=== PATIENT | male | born 1950 | race Caucasian/White ===

== ENCOUNTER → 2017-11-05 | Outpatient (CLI) | payer OTHER ==
--- NOTE | 2017-11-05 15:28 | DIAGNOSTIC IMAGING REPORT ---
L HAND MIN 3 VIEWS ROUTINE CLINICAL HISTORY: Left hand pain COMPARISON: None DISCUSSION: Tiny radiopaque foreign bodies are visualized adjacent to the first metacarpal and proximal phalanx of the index finger. There are no acute fractures. There are moderately advanced arthritic changes present within the wrist. There is mild scapholunate widening. There is mild capitate subsidence. There is marked narrowing of the radial lunate joint. IMPRESSION: 1. Advanced arthritic changes within the wrist with probable disruption of the scapholunate ligament 2. No acute fractures 3. Tiny radiopaque foreign bodies adjacent to the proximal phalanx of the index finger and first metacarpal Electronically signed by: Jason Blood M.D. 11/05/2017 3:27 PM Dictated Date/Time: 11/05/2017 3:24 PM
== END | disposition home or self-care (01) ==
LOC: C.RAD1850 15:12
PROVIDERS: ATTEND Internal Medicine Rheumatology
DX: M19.90 Unspecified osteoarthritis, unspecified site (principal)

== ENCOUNTER 2020-04-11 09:21 | Observation (INO) ==
--- NOTE | 2020-04-11 09:40 | Emergency Department Note ---
Impression & Plan Multiple rib fractures, Fall, Chest pain, Blood glucose elevated ED Provider Note NAME: LOUISE SPEARS AGE: 70 SEX: M : 1950 ARRIVES VIA: Ambulance INFORMANT: Patient ED PROVIDER(S): Alejandro Diaz DO CHIEF COMPLAINT: fall HPI: Patient is a 62-year-old male who presents the ER who was walking to the bathroom. He had a bowel movement and urinated. He normally walks with a walker. He went to get up and lost his balance. He was not dizzy or lightheade d. He fell in between the tub and the toilet. He was unable to get up. This occurred around 730. He denies any headache or neck pain. He does admit to chronic pain secondary to his rheumatoid arthritis. He notes left-sided rib pain and belly pain from the fall. Denies any other chest pain or shortness of breath. No nausea vomiting or diarrhea. No weakness or numbness in the arms or legs. Pain is a 7 out of 10 on the left side of his chest worse with movement twisting turning bending. Rest improves it. Denies any blood thinners with the exception of aspirin. ROS: See above HPI for pertinent positives & negatives. A total of 10 systems reviewed and were otherwise negative. PAST MEDICAL HISTORY:See Below PAST SURGICAL HISTORY:See Below FAMILY HISTORY:See Below SOCIAL HISTORY:See Below HOME MEDICATIONS:See Below ALLERGIES:See Below VITALS:See Below PHYSICAL EXAMINATION: GENERAL: alert, well appearing, well nourished, no distress, non-toxic HEAD: normal cephalic, atraumatic EYE EXAM: normal conjunctiva, PERRL and EOM's grossly intact OROPHARYNX: no exudate, no erythema, lips, buccal mucosa, and tongue normal and mucous membranes are moist NECK: supple, no nuchal rigidity, no adenopathy, non-tender CHEST: stable to compression anteriorly and posteriorly tenderness throughout the left ribs tracking down into the abdomen LUNGS: clear to auscultation. Normal chest wall mechanics HEART: no murmurs, S1 normal and S2 normal ABDOMEN: abdomen soft, minimal tenderness throughout the left lateral belly normo-active bowel sounds, no masses, no rebound or guarding. PELVIS: stable to compression anteriorly and posteriorly BACK: Back is symmetrical on inspection and there is no deformity, no midline tenderness, no CVA tenderness. UPPER EXTREMITIES: full active and passive range of motion of all joints without tenderness to palpation LOWER EXTREMITIES: full active and passive range of motion of all joints without tenderness to palpation NEURO EXAM: Normal sensorium, cranial nerves II-XII grossly intact, normal speech, no gross weakness of arms, no gross weakness of legs. GCS: 15. MEDICAL DECISION MAKING: Patient is a 70-year-old male who presents the ER following a mechanical fall while getting up off the toilet. He is complaining of severe left-sided rib pain. 7 out of 10. On palpation he has acute reproducible pain. Slightly tachycardic and hypertensive. IV was established blood work was obtained. Denies any blood thinners. Labs show no significant leukocytosis. Persistent anemia 11.6 consistent with previous. BMP was unremarkable. Glucose slightly elevated. LFTs bilirubin were negative. CT of the head, cervical spine, chest abdomen pelvis show 3 rib fractures on the left consistent with his pain. Patient was given 2 doses of IV morphine as well as IV fluids and IV Zofran. Pain was still not controlled. He normally walks with a walker at home secondary to his rheumatoid arthritis. He was updated at bedside. Unable to really sit up secondary to the pain and discussed with the hospitalist for further evaluation. Triage Nursing notes reviewed. Prior medical records reviewed Vital Signs: reviewed and remarkable for tachycardic Differential diagnosis: Differential diagnoses include major intracranial, cervical, spinal, thoracic, abdominal, pelvic and neurologic injury. Fracture, contusion, sprain, strain, laceration, abrasions included as well. ER treatment provided: See below Diagnostics interpreted by me: ECG: Sinus tachycardia rate of 104 Normal axis T wave inversion in lead III No PVCs Normal QTC Cardiac Monitoring: An order was placed for continuous cardiac monitoring. The monitor shows a rate of 98 with sinus rhythm. Laboratory studies: As stated above and show below. Imaging studies: CT head, cervical spine chest abdomen pelvis unremarkable for 3 rib fractures. Consultation(s): Discussed with Juan Manuel Perez in hospital service ED COURSE: Procedures: none Critical Care: None Past Med/Surg History Medical History (Updated 04/11/20 @ 13:30 by Alejandro Diaz DO) Abnormal FSH level Actinic keratosis Anemia of chronic disease Arthritis Benign nevus of skin Benign prostatic hyperplasia with urinary obstruction Calcinosis Cervical arthritis with myelopathy Chronic bilateral low back pain without sciatica Chronic pain of both knees Chronic wrist pain Diabetes mellitus TYPE 2 Dilated pore of Andie Dyslipidemia Elevated sed rate History of gastric ulcer Hyperlipidemia Hypertension Hypogonadism in male Idiopathic polyneuropathy Impotence, organic Low HDL (under 40) Low vitamin B12 level Lower urinary tract symptoms (LUTS) Lyme disease Male erectile disorder of organic origin Monoclonal gammopathy of undetermined significance Obstructive sleep apnea Peripheral vascular disease Polymyalgia rheumatica Raynauds syndrome Sclerodactyly Scleroderma Seborrheic keratosis Urinary retention Vascular calcification Vasculopathy Vasovagal attack Vitamin D deficiency, unspecified Surgical History H/O repair of rotator cuff H/O shoulder surgery bicep tenotomy History of arthroplasty of knee History of repair of rotator cuff History of sinus surgery Status post amputation of finger of right hand Family History Brother Diabetes Cancer Thyroid cancer Mother Hypertension Ovarian cancer age 69 Denies family history of Prostate cancer Social History Smoking Status: Former smoker Age Started Using Tobacco: 21; Age Quit Using Tobacco: 24; Cigarettes Per Day: 1; Hx Alcohol Use: Yes Alcohol type: beer Hx Substance Use: No Preferred Language: Danish Communication Ability: Effective Visual Impairment: No Limitations Hearing Ability: Hard of Hearing Chief Operator Synthesis Required: No Beliefs That Will Affect Care: None marital status: Current Living Situation: Spouse current occupational status: retired Other Information That Helps Us Care for You: No Feels Safe at Home: Yes Safety Concerns: Feels Safe At This Time Dental Care, Regularly: No Physical Activity Frequency: Does not Exercise Allergies Allergies Allergy/AdvReac Type Severity Reaction Status Date / Time No Known Allergies Allergy Verified 04/11/20 10:36 Home Meds Home Medications Medication Instructions Recorded Confirmed aspirin 81 mg tablet,delayed 81 mg PO DAILY tab 03/01/19 04/11/20 release cholecalciferol (vitamin D3) 125 5,000 units PO DAILY 04/05/19 04/11/20 mcg (5,000 unit) capsule glucosamine sulfate 2KCl 500 mg 1,000 mg PO DAILY cap 04/05/19 04/11/20 capsule multivitamin 1 tab PO DAILY tab 04/05/19 04/11/20 omega 3,6,9 combination no.7 92 mg 92 mg PO DAILY 12/03/19 04/11/20 (43 mg-22 [id number]) chew tablet acetaminophen [Tylenol Arthritis] 650 mg PO Q12H PRN 04/11/20 04/11/20 prednisone 20 mg PO DAILY 04/11/20 04/11/20 sulfamethoxazole-trimethoprim 1 tab PO 3XWK 04/11/20 04/11/20 [Bactrim] Previous Rx's Medication Instructions Recorded metoprolol succinate 50 mg 100 mg PO HS #180 tab 07/19/19 tablet,extended release 24 hr tamsulosin 0.4 mg capsule 0.4 mg PO DAILY #90 cap 08/16/19 cyanocobalamin (vitamin B-12) 1,000 mcg PO DAILY #90 tab 09/06/19 1,000 mcg tablet metformin 500 mg tablet,extended 500 mg PO BID #180 tab 11/02/19 release 24 hr nifedipine 30 mg tablet,extended 30 mg PO DAILY #90 tab 12/09/19 release 24 hr rosuvastatin 5 mg tablet 5 mg PO DAILY #90 tab 12/21/19 testosterone 20.25 mg/1.25 gram 4 pump TOP DAILY #75 gm 01/03/20 (1.62 %) transdermal gel pump blood sugar diagnostic #20 ea 01/05/20 lisinopril 20 2 tab PO QAM #180 tab 02/15/20 mg-hydrochlorothiazide 12.5 mg tablet Results & Data (ED) Vital Signs Vital Signs - 24 hr 04/11/20 09:31 04/11/20 09:36 04/11/20 10:49 Temperature 37.4 C Temperature Source Oral Pulse Rate 102 H Pulse Rate [Left Finger] 99 H Respiratory Rate 20 22 Respiratory Effort / Characteristics Respiratory Depth Blood Pressure 152/91 H Blood Pressure [Left Arm] 134/82 Blood Pressure Mean 111 Blood Pressure Mean [Left Arm] 99 Pulse Oximetry 95 95 97 Oxygen Delivery Method Room Air Room Air Room Air Sepsis Recent Fever Within 48 Hours No Sepsis New/Unexplained Change in Mental Status No Sepsis Action Taken by Nursing No Action Required 04/11/20 11:22 04/11/20 11:30 04/11/20 12:12 Temperature Temperature Source Pulse Rate Pulse Rate [Left Finger] 95 H 96 H 106 H Respiratory Rate 20 20 20 Respiratory Effort / Characteristics Non-Labored Non-Labored Respiratory Depth Normal Normal Blood Pressure Blood Pressure [Left Arm] 146/91 H 143/83 H 127/84 Blood Pressure Mean Blood Pressure Mean [Left Arm] 109 103 98 Pulse Oximetry 96 97 94 Oxygen Delivery Method Room Air Room Air Room Air Sepsis Recent Fever Within 48 Hours Sepsis New/Unexplained Change in Mental Status Sepsis Action Taken by Nursing 04/11/20 13:18 Temperature Temperature Source Pulse Rate Pulse Rate [Left Finger] 97 H Respiratory Rate 20 Respiratory Effort / Characteristics Respiratory Depth Blood Pressure Blood Pressure [Left Arm] 151/96 H Blood Pressure Mean Blood Pressure Mean [Left Arm] 114 Pulse Oximetry 96 Oxygen Delivery Method Room Air Sepsis Recent Fever Within 48 Hours Sepsis New/Unexplained Change in Mental Status Sepsis Action Taken by Nursing Laboratory Data Result diagrams: 04/11/20 09:34 04/11/20 09:34 Lab Results 04/11/20 04/11/20 04/11/20 Range/Units 09:34 09:34 09:39 WBC 7.01 (4.8-10.8) K/uL RBC 4.30 L (4.7-6.1) M/uL Hgb 11.6 L (14.0-18.0) g/dL POC Hgb 12.6 L (14.0-18.0) g/dl Hct 36.5 L (42-52) % POC Hct 37 L (42-52) % MCV 84.9 (80-100) fL MCH 27.0 (25-34) pg MCHC 31.8 L (32-36) g/dL RDW Std Deviation 57.8 H (36.4-46.3) fL RDW Coeff of Zaheer 18.7 H (11.5-14.5) % Plt Count 263 (130-400) K/uL MPV 9.5 (7.4-10.4) fL Immature Gran % (Auto) 1.0 % Neut % (Auto) 76.4 % Lymph % (Auto) 11.6 % Hodgeman % (Auto) 10.8 % Eos % (Auto) 0.1 % Baso % (Auto) 0.1 % Neut # (Auto) 5.35 (1.4-6.5) K/uL Lymph # (Auto) 0.81 L (1.2-3.4) K/uL Hodgeman # (Auto) 0.76 H (0.11-0.59) K/uL Eos # (Auto) 0.01 (0-0.5) K/uL Baso # (Auto) 0.01 (0-0.2) K/uL Immature Gran # (Auto) 0.07 H (0.00-0.02) K/uL POC Sodium 138 (135-144) mmol/L Sodium 138 (136-145) mmol/L POC Potassium 4.3 (3.3-5.0) mmol/L Potassium 4.2 (3.5-5.1) mmol/L POC Chloride 100 L (101-112) mmol/L Chloride 104 (98-107) mmol/L Carbon Dioxide 28 (21-32) mmol/L POC Total CO2 26 (24-31) mmol/L Anion Gap 6.0 (3-11) POC Anion Gap 17.0 (16-25) mmol/L POC BUN 20 H (7-18) mg/dl BUN 20 H (7-18) mg/dl Creatinine 0.79 (0.6-1.4) mg/dl POC Creatinine 0.7 (0.6-1.3) mg/dl Est Cr Clr Drug Dosing 89.5 ml/min Est GFR ( Amer) 106.9 Est GFR (Non-Af Amer) 92.3 BUN/Creatinine Ratio 25.5 H (10-20) Glucose 135 H (70-99) mg/dl POC Glucose (other) 135 H (70-99) mg/dl Calcium 8.8 (8.5-10.1) mg/dl POC Ioniz Calcium Rafita 1.16 (1.12-1.32) mmol/l Total Bilirubin 0.8 (0.2-1) mg/dl AST 17 (15-37) U/L ALT 23 (12-78) U/L Alkaline Phosphatase 89 (45-117) U/L Total Protein 7.9 (6.4-8.2) gm/dl Albumin 3.0 L (3.4-5.0) gm/dl Globulin 4.9 H (2.5-4.0) gm/dl Albumin/Globulin Ratio 0.6 L (0.9-2) Administered Medications Lisinopril/HCTZ (Lisinopril/Hctz 20/12.5mg 1 Tab Tab) 2 tab PO QAM GLORY Stop: 05/11/20 12:35 Last Admin: 04/11/20 13:19 Dose: 2 tab Documented by: [id number] Nifedipine (Nifedipine Extended Rel 30 Mg Tabcr) 30 mg PO DAILY [facility] Stop: 05/11/20 12:35 Last Admin: 04/11/20 13:20 Dose: 30 mg Documented by: [id number] Prednisone (Prednisone 10 Mg Tablet) 20 mg PO DAILY GLORY Stop: 05/11/20 12:44 Last Admin: 04/11/20 13:19 Dose: 20 mg Documented by: [id number] Discontinued Medications Ioversol (Ioversol 100ml) 93 ml IV ONCE ONE Stop: 04/11/20 11:12 Last Admin: 04/11/20 11:12 Dose: 93 ml Documented by: [id number] Morphine Sulfate (Morphine Sulfate 4 Mg/Ml 1 Ml Carp\Vial) 4 mg IV NOW STA Stop: 04/11/20 10:59 Last Admin: 04/11/20 11:24 Dose: 4 mg Documented by: [id number] Morphine Sulfate (Morphine Sulfate 10 Mg/Ml Carp/Vial) 6 mg IV NOW STA Stop: 04/11/20 11:52 Last Admin: 04/11/20 12:17 Dose: 6 mg Documented by: [id number] Ondansetron HCl (Ondansetron Inj 2 Mg/Ml 2 Ml Vial) 4 mg IV NOW STA Stop: 04/11/20 10:59 Last Admin: 04/11/20 11:24 Dose: 4 mg Documented by: [id number] Discharge Plan Visit Data Chief Complaint: Fall Stated Complaint: fall/ head pain ED Provider: Alejandro Diaz Discharge Problem: Multiple rib fractures, Fall, Chest pain, Blood glucose elevated Forms Stand Alone Forms: My [facility] Prescriptions Prescriptions: No Action metoprolol succinate 50 mg tablet extended release 24 hr 100 mg PO HS Qty: 180 RF: 3 cyanocobalamin (vitamin B-12) 1,000 mcg tablet 1,000 mcg PO DAILY Qty: 90 RF: 3 metformin 500 mg tablet extended release 24 hr 500 mg PO BID Qty: 180 RF: 1 nifedipine [Procardia XL] 30 mg tablet extended release 24hr 30 mg PO DAILY Qty: 90 RF: 3 rosuvastatin 5 mg tablet 5 mg PO DAILY Qty: 90 RF: 1 testosterone [AndroGel] 20.25 mg/1.25 gram (1.62 %) gel in metered-dose pump 4 pump TOP DAILY Qty: 75 RF: 1 (DME) blood sugar diagnostic [Accu-Chek Lesley Plus test strp] Strip See Rx Instructions .ROUTE .MEDSUPPLY Qty: 20 RF: 5 lisinopril-hydrochlorothiazide 20-12.5 mg tablet 2 tab PO QAM Qty: 180 RF: 3 aspirin 81 mg tablet,delayed release (DR/EC) 81 mg PO DAILY RF: 0 tamsulosin 0.4 mg capsule 0.4 mg PO DAILY Qty: 90 RF: 3 [place] DHA 92 mg (43 mg-22 [id number]) tablet,chewable 92 mg PO DAILY RF: 0 Glucosamine Relief 500 mg capsule 1,000 mg PO DAILY RF: 0 cholecalciferol (vitamin D3) 5,000 unit capsule 5,000 units PO DAILY RF: 0 multivitamin tablet 1 tab PO DAILY RF: 0 acetaminophen [Tylenol Arthritis] 650 mg Tablet Extended Release 650 mg PO Q12H PRN (Reason: Pain) RF: 0 prednisone 10 mg tablet 20 mg PO DAILY RF: 0 sulfamethoxazole-trimethoprim [Bactrim] 400-80 mg tablet 1 tab PO 3XWK RF: 0 Discharge Problem: Multiple rib fractures Qualifiers: Encounter type: initial encounter Fracture type: closed Laterality: left Qualified Code(s): S22.42XA - Multiple fractures of ribs, left side, initial encounter for closed fracture Fall Qualifiers: Encounter type: initial encounter Qualified Code(s): W19.XXXA - Unspecified fall, initial encounter Chest pain Qualifiers: Chest pain type: unspecified Qualified Code(s): R07.9 - Chest pain, unspecified
[2020-04-11 09:50] LABS: Basophils # (auto) 0.01 K/uL (0-0.2); Basophils % (auto) 0.1 %; Eosinophils # (auto) 0.01 K/uL (0-0.5); Eosinophils % (auto) 0.1 %; Hematocrit (blood only) 36.5 % (42-52); Hemoglobin 11.6 g/dL (14.0-18.0); Immature Granulocytes # (auto) 0.07 K/uL (0.00-0.02); Lymphocytes # (auto) 0.81 K/uL (1.2-3.4); Lymphocytes % (auto) 11.6 %; Mean Corpuscular Hgb Conc 31.8 g/dL (32-36); Mean Corpuscular Volume 84.9 fL (80-100); Mean Platelet Volume 9.5 fL (7.4-10.4); Monocytes # (auto) 0.76 K/uL (0.11-0.59); Monocytes % (auto) 10.8 %; Neutrophils # (auto) 5.35 K/uL (1.4-6.5); Neutrophils % (auto) 76.4 %; Platelet Count 263 K/uL (130-400); RDW Coefficient of Variation 18.7 % (11.5-14.5); RDW Standard Deviation 57.8 fL (36.4-46.3); White Blood Count 7.01 K/uL (4.8-10.8)
[2020-04-11 09:53] LABS: iSTAT Creatinine 0.7 mg/dl (0.6-1.3); iSTAT Hemoglobin 12.6 g/dl (14.0-18.0); iSTAT Ionized Calcium 1.16 mmol/l (1.12-1.32); iSTAT Potassium 4.3 mmol/L (3.3-5.0)
[2020-04-11 10:10] LABS: BUN Creatinine Ratio 25.5 (10-20); Calcium 8.8 mg/dl (8.5-10.1); Creatinine Clr Calc Pharmacy 89.5 ml/min; Est GFR (African American) 106.9; Est GFR (Non-African American) 92.3; Potassium 4.2 mmol/L (3.5-5.1)
[2020-04-11 10:13] LABS: Albumin Globulin Ratio 0.6 (0.9-2); Bilirubin,Total 0.8 mg/dl (0.2-1); Globulin 4.9 gm/dl (2.5-4.0); Total Protein 7.9 gm/dl (6.4-8.2)
[2020-04-11] MEDS ORDERED: MoRPHine SULFATE 4 MG/ML 1 ML CARP\\VIAL IV STA (10:58)
[2020-04-11] MEDS ORDERED: ONDANSETRON INJ 2 MG/ML 2 ML VIAL IV STA (10:58)
[2020-04-11] MEDS ORDERED: IOVERSOL 100ml IV ONE (11:11)
--- NOTE | 2020-04-11 11:26 | CT Scan Report ---
CT head/brain wo con CLINICAL HISTORY: Head pain status post trauma COMPARISON STUDY: MRI the brain dated 12/24/2018 TECHNIQUE: Axial CT of the brain is performed from the vertex to the skull base. IV contrast was not administered for this examination. A dose lowering technique was utilized adhering to the principles of ALARA. CT DOSE: FINDINGS: No intra or extra-axial mass lesions are visualized. There is no CT evidence of acute cortical infarc tion. There is no evidence of midline shift. There is no acute hemorrhage. No calvarial fractures ar e visualized. There are patchy white matter hypodensities likely on a small vessel basis. There is no evidence of pathologic ventricular dilatation. There is no evidence of acute sinusitis IMPRESSION: No acute intracranial findings ACT 112: Negative or not required by law. Electronically signed by: Jason Blood M.D. 04/11/2020 11:24 AM
--- NOTE | 2020-04-11 11:27 | CT Scan Report ---
CT OF THE CERVICAL SPINE CLINICAL HISTORY: Neck pain status post trauma COMPARISON STUDY: X-ray study dated 11/26/2018 CT DOSE: 2397.02 mGy.cm TECHNIQUE: CT scan of the cervical spine was performed from the skull base to the thoracic inlet. Bebe ges are reviewed in the axial, sagittal, and coronal planes. IV contrast was not administered for thi s examination. A dose lowering technique was utilized adhering to the principles of ALARA. FINDINGS: The visualized portions of the lung apices reveal no evidence of pneumothorax. The prevertebral soft tissues are normal. No fractures or subluxations are visualized. There are multilevel degenerative changes IMPRESSION: No evidence of acute fracture or traumatic subluxation. ACT 112: Negative or not required by law. Electronically signed by: Jason Blood M.D. 04/11/2020 11:26 AM
--- NOTE | 2020-04-11 11:38 | CT Scan Report ---
CT abd pelvis IV con only CLINICAL HISTORY: Abdominal pain status post trauma COMPARISON STUDY: None. TECHNIQUE: The patient was scanned in a dynamic helical fashion during intravenous administration of 93 cc of Optiray 320 A dose lowering technique was utilized adhering to the principles of ALARA. CT DOSE: FINDINGS: Lower chest: There are dependent atelectatic changes. Liver: There is a nonspecific 12 mm left lobe hepatic hypodensity. There is no CT evidence of acute h epatic injury. Gallbladder: Unremarkable. Spleen: The spleen is mildly enlarged measuring 13 cm Pancreas: Unremarkable. Adrenal glands: Unremarkable. Kidneys: There is symmetric renal cortical enhancement. The kidneys are normal in size without hydron ephrosis. Bowel: There are no transition zones to indicate bowel obstruction. There is no evidence of acute div erticulitis. The appendix appears normal. There is no pneumatosis. There is no pathologic interloop f luid. Peritoneum: There is no intraperitoneal free air or abdominal ascites. Vasculature: The abdominal aorta is normal in course and caliber. Adenopathy: None. Pelvic viscera: The bladder, and pelvic viscera are unremarkable. Skeletal structures: There are extensive multifocal bilateral subcutaneous soft tissue calcifications . There are age indeterminant fractures of the left seventh eighth and ninth ribs laterally. There ar e old right-sided rib fractures. IMPRESSION: 1. No evidence of acute intra-abdominal or pelvic injury 2. Old right-sided rib fractures, and age-indeterminate fractures of the left seventh, eighth, and ni nth ribs 3. Extensive multifocal bilateral subcutaneous soft tissue calcifications ACT 112: Negative or not required by law. Electronically signed by: Jason Blood M.D. 04/11/2020 11:36 AM
--- NOTE | 2020-04-11 11:39 | CT Scan Report ---
CT OF THE CHEST WITH IV CONTRAST CLINICAL HISTORY: Fall. Left-sided rib pain. COMPARISON STUDY: Chest radiograph October 28, 2018. TECHNIQUE: Following IV administration of 93 mL of Optiray-320, helical axial images of the chest we re obtained. Sagittal and coronal reconstructions were viewed as well as maximal intensity projectio ns on an independent 3-D workstation. Automated exposure control was utilized for the study. A dose lowering technique was utilized adhering to the principles of ALARA. FINDINGS: Incidental note is made of extensive multifocal soft tissue calcifications which are chron ic. There is no evidence for traumatic injury to the thoracic aorta. Moderate cardiomegaly and merida ry artery calcification is present. There is no pericardial effusion. No pneumothorax or pulmonary co ntusion is present. Several thoracic spine compression deformity is probably. There are several old l eft rib fractures. Note is made of acute nondisplaced fractures of the lateral left seventh, eighth a nd ninth ribs. No acute right-sided rib fractures are present. The abdomen and pelvis will be reporte d separately. IMPRESSION: 1. Acute nondisplaced fractures of the lateral left seventh, eighth and ninth ribs. No pneumothorax. 2. No additional acute traumatic findings within the chest. 3. Multifocal soft tissue calcifications which are chronic. ACT 112: Negative or not required by law. Electronically signed by: Adriel Denney M.D. 04/11/2020 11:37 AM
[2020-04-11] MEDS ORDERED: MoRPHine SULFATE 10 MG/ML CARP/VIAL IV STA (11:51)
--- NOTE | 2020-04-11 12:11 | Electrocardiogram Report ---
Test Reason : Blood Pressure : / mmHG Vent. Rate : 104 BPM Atrial Rate : 104 BPM P-R Int : 178 ms QRS Dur : 082 ms QT Int : 354 ms P-R-T Axes : 033 038 -02 degrees QTc Int : 465 ms Poor data quality, interpretation may be adversely affected Sinus tachycardia Borderline ECG When compared with ECG of 28-OCT-2018 18:15, No significant change was found Confirmed by Matthew Rasheed ([id number]) on 04/11/2020 12:10:53 PM Referred By: Confirmed By:Matthew Rasheed
--- NOTE | 2020-04-11 12:55 | History & Physical Report ---
Date of Service April 11, 2020 Assessment & Plan (1) Ribs, multiple fractures: -Admit to [facility] for observation -Pain control with IV MS prn, tramadol prn, [id number] Tylenol, lidocaine patch -Encouraged aeration of the lungs and ambulation at bedside, incentive spirometer and flutter ordered -CT of the chest reviewed showing new acute left-sided rib fractures #79, old right-sided rib fractures seen on imaging -Patient with adequate O2 sats, on room air -PT/OT consults for imbalance and worsening ambulatory status in past month (2) Hypertension: -Missed morning medications, will order lisinopril/HCTZ and Procardia to start now, continue metoprolol succinate 100 mg HS -BP well controlled, slightly tachycardic likely secondary to missing meds (3) Hyperlipidemia: -Not on statin therapy -Continue omega-3, 6, 9 daily (4) Anemia of chronic disease: -Hemoglobin 11.6, appears to be about baseline currently (5) Polymyalgia rheumatica: -Placed on prednisone, cont 20 mg for now. pt reports that he has not been tapered off of this despite Dr. Wells's note which is available in our system from 03/14/2020 (6) Raynauds syndrome: (7) Scleroderma: (8) Sclerodactyly: (9) Arthritis: -Patient follows with rheumatology, Dr. Mathew River at [facility]-has recently been seen for possible myositis because he notices multiple small calcified nodules over legs, feet and buttocks. He has evidence from dermatology in 2017 consistent with calcinosis (10) Diabetes mellitus: -Last A1c was 6.1 in February -Hold outpatient metformin -ISS with Accu-Christi MORGAN (11) Obstructive sleep apnea: - hx of such (12) DVT prophylaxis: - teds, scds CODE: Full Dispo: From home, likely to remain in the hospital x 1 day History of Present Illness Primary Care Provider: Fredi Rodríguez MD This is a 70-year-old male with PMHx of polymyalgia rheumatica, Raynaud's syndrome, sclerodactyly, scleroderma, arthritis, HTN, HLD, DM type II, anemia, TRUMAN who presents after an acute fall sustained this morning while attempting to get up off of the toilet. Patient states that he stepped and lost his footing due to imbalance and slipped on water where he came down and hit his right side on the tub causing significant pain. He did not hit his head, no LOC, no presyncopal symptoms including lightheadedness or dizziness upon standing. He ambulates with a walker at baseline, does not participate in routine exercises nor does he see PT/OT at home. Patient sustained new acute left rib fractures involving ribs 7, 8, 9. His pain has improved since being in the ER and getting morphine at bedside. He is able to take deep breaths but it is painful, denies cough, shortness of breath, fever sweats or chills. His is present with him at bedside and states that he has been going downhill over the past month in terms of his ambulatory status. He has fallen previously, has a bruise over his back from the last time he fell which was a few weeks ago. Patient takes baby aspirin daily but no other blood thinners. He missed his morning medications today. Allergies Allergy/AdvReac Type Severity Reaction Status Date / Time No Known Allergies Allergy Verified 04/11/20 10:36 Home Medications Home Medications Medication Instructions Recorded Confirmed Type aspirin 81 mg tablet,delayed 81 mg PO DAILY tab 03/01/19 04/11/20 History release cholecalciferol (vitamin D3) 125 5,000 units PO DAILY 04/05/19 04/11/20 History mcg (5,000 unit) capsule glucosamine sulfate 2KCl 500 mg 1,000 mg PO DAILY cap 04/05/19 04/11/20 History capsule multivitamin 1 tab PO DAILY tab 04/05/19 04/11/20 History metoprolol succinate 50 mg 100 mg PO HS #180 tab 07/19/19 04/11/20 Rx tablet,extended release 24 hr tamsulosin 0.4 mg capsule 0.4 mg PO DAILY #90 cap 08/16/19 04/11/20 Rx cyanocobalamin (vitamin B-12) 1,000 mcg PO DAILY #90 tab 09/06/19 04/11/20 Rx 1,000 mcg tablet metformin 500 mg tablet,extended 500 mg PO BID #180 tab 11/02/19 04/11/20 Rx release 24 hr omega 3,6,9 combination no.7 92 mg 92 mg PO DAILY 12/03/19 04/11/20 History (43 mg-22 [id number]) chew tablet nifedipine 30 mg tablet,extended 30 mg PO DAILY #90 tab 12/09/19 04/11/20 Rx release 24 hr rosuvastatin 5 mg tablet 5 mg PO DAILY #90 tab 12/21/19 04/11/20 Rx testosterone 20.25 mg/1.25 gram 4 pump TOP DAILY #75 gm 01/03/20 04/11/20 Rx (1.62 %) transdermal gel pump blood sugar diagnostic #20 ea 01/05/20 03/13/20 Rx lisinopril 20 2 tab PO QAM #180 tab 02/15/20 04/11/20 Rx mg-hydrochlorothiazide 12.5 mg tablet acetaminophen [Tylenol Arthritis] 650 mg PO Q12H PRN 04/11/20 04/11/20 History prednisone 20 mg PO DAILY 04/11/20 04/11/20 History sulfamethoxazole-trimethoprim 1 tab PO 3XWK 04/11/20 04/11/20 History [Bactrim] Past Med/Surg History Medical History (Updated 04/11/20 @ 13:30 by Alejandro Diaz DO) Abnormal FSH level Actinic keratosis Anemia of chronic disease Arthritis Benign nevus of skin Benign prostatic hyperplasia with urinary obstruction Calcinosis Cervical arthritis with myelopathy Chronic bilateral low back pain without sciatica Chronic pain of both knees Chronic wrist pain Diabetes mellitus TYPE 2 Dilated pore of Andie Dyslipidemia Elevated sed rate History of gastric ulcer Hyperlipidemia Hypertension Hypogonadism in male Idiopathic polyneuropathy Impotence, organic Low HDL (under 40) Low vitamin B12 level Lower urinary tract symptoms (LUTS) Lyme disease Male erectile disorder of organic origin Monoclonal gammopathy of undetermined significance Obstructive sleep apnea Peripheral vascular disease Polymyalgia rheumatica Raynauds syndrome Sclerodactyly Scleroderma Seborrheic keratosis Urinary retention Vascular calcification Vasculopathy Vasovagal attack Vitamin D deficiency, unspecified Surgical History H/O repair of rotator cuff H/O shoulder surgery bicep tenotomy History of arthroplasty of knee History of repair of rotator cuff History of sinus surgery Status post amputation of finger of right hand Family History Brother Diabetes Cancer Thyroid cancer Mother Hypertension Ovarian cancer age 69 Denies family history of Prostate cancer Social History Smoking Status: Former smoker Age Started Using Tobacco: 21; Age Quit Using Tobacco: 24; Cigarettes Per Day: 1; Hx Alcohol Use: Yes Alcohol type: beer Hx Substance Use: No Preferred Language: Chinese Communication Ability: Effective Visual Impairment: No Limitations Hearing Ability: Hard of Hearing Salon Customer Experience Specialist Required: No Beliefs That Will Affect Care: None marital status: Current Living Situation: Spouse current occupational status: retired Other Information That Helps Us Care for You: No Feels Safe at Home: Yes Safety Concerns: Feels Safe At This Time Dental Care, Regularly: No Physical Activity Frequency: Does not Exercise Review of Systems Review of Systems: Constitutional: No fever, sweats or chills Eyes: No diplopia, no worsening or blurred vision ENT: normal hearing, no trouble swallowing Respiratory: No cough, sputum, dyspnea at rest or on exertion Cardiovascular: No chest pain, tightness or palpitations Abdomen: No pain, nausea, vomiting, diarrhea or constipation Musculoskeletal: As per HPI, left rib pain, chronic low back pain, chronic knee pain. Neurologic: +Generalized weakness of bilateral legs, no numbness/tingling, +Uses a walker at baseline Psychiatric: No anxiety or depression Skin: No rash or itch Physical Exam Physical Exam: General: awake, alert, no apparent distress Head: Normocephalic, atraumatic ENT: PERRL, EOMI, no pharyngeal exudate, mucous membranes moist Chest: Clear to auscultation, on room air, no adventitious breath sounds, tenderness over the left chest wall, developing ecchymosis Cardiac: Regular rhythm, tachycardic with heart rate in the low 100s, no murmur, no JVD, normal peripheral pulses, good capillary refill Abdominal: NABS x 4 quadrants, soft, nontender to palpation, no rebound, guarding or tenderness Extremities: Normal inspection, no peripheral edema or erythema, calfs nontender to palpation, + many small calcified nodules over extremities under the skin in the left and right leg, bilateral feet, and buttocks Psych: Normal mood and affect Neuro: AAO x 3, no gross motor deficits, speech is clear, no peripheral sensory deficits Skin: no rash or erythema Results & Data Results & Data ([facility]) Vital Signs (Past 12 Hours) Vital Signs Temp Pulse Pulse Resp BP BP Pulse Ox 04/11/20 12:12 106 H 20 127/84 94 04/11/20 11:30 96 H 20 143/83 H 97 04/11/20 11:22 95 H 20 146/91 H 96 04/11/20 10:49 99 H 22 134/82 97 04/11/20 09:36 95 04/11/20 09:31 37.4 C 102 H 20 152/91 [address] OF THE CHEST WITH IV CONTRAST CLINICAL HISTORY: Fall. Left-sided rib pain. COMPARISON STUDY: Chest radiograph October 28, 2018. TECHNIQUE: Following IV administration of 93 mL of Optiray-320, helical axial images of the chest were obtained. Sagittal and coronal reconstructions were viewed as well as maximal intensity projections on an independent 3-D workstation. Automated exposure control was utilized for the study. A dose lowering technique was utilized adhering to the principles of ALARA. FINDINGS: Incidental note is made of extensive multifocal soft tissue calcifications which are chronic. There is no evidence for traumatic injury to the thoracic aorta. Moderate cardiomegaly and coronary artery calcification is present. There is no pericardial effusion. No pneumothorax or pulmonary contusion is present. Several thoracic spine compression deformity is probably. There are several old left rib fractures. Note is made of acute nondisplaced fractures of the lateral left seventh, eighth and ninth ribs. No acute right- sided rib fractures are present. The abdomen and pelvis will be reported separately. IMPRESSION: 1. Acute nondisplaced fractures of the lateral left seventh, eighth and ninth ribs. No pneumothorax. 2. No additional acute traumatic findings within the chest. 3. Multifocal soft tissue calcifications which are chronic. CT abd pelvis IV con only CLINICAL HISTORY: Abdominal pain status post trauma COMPARISON STUDY: None. TECHNIQUE: The patient was scanned in a dynamic helical fashion during intravenous administration of 93 cc of Optiray 320 A dose lowering technique was utilized adhering to the principles of ALARA. CT DOSE: FINDINGS: Lower chest: There are dependent atelectatic changes. Liver: There is a nonspecific 12 mm left lobe hepatic hypodensity. There is no CT evidence of acute hepatic injury. Gallbladder: Unremarkable. Spleen: The spleen is mildly enlarged measuring 13 cm Pancreas: Unremarkable. Adrenal glands: Unremarkable. Kidneys: There is symmetric renal cortical enhancement. The kidneys are normal in size without hydronephrosis. Bowel: There are no transition zones to indicate bowel obstruction. There is no evidence of acute diverticulitis. The appendix appears normal. There is no pneumatosis. There is no pathologic interloop fluid. Peritoneum: There is no intraperitoneal free air or abdominal ascites. Vasculature: The abdominal aorta is normal in course and caliber. Adenopathy: None. Pelvic viscera: The bladder, and pelvic viscera are unremarkable. Skeletal structures: There are extensive multifocal bilateral subcutaneous soft tissue calcifications. There are age indeterminant fractures of the left seventh eighth and ninth ribs laterally. There are old right-sided rib fractures. IMPRESSION: 1. No evidence of acute intra-abdominal or pelvic injury 2. Old right-sided rib fractures, and age-indeterminate fractures of the left seventh, eighth, and ninth ribs 3. Extensive multifocal bilateral subcutaneous soft tissue calcifications CT OF THE CERVICAL SPINE CLINICAL HISTORY: Neck pain status post trauma COMPARISON STUDY: X-ray study dated 11/26/2018 CT DOSE: 2397.02 mGy.cm TECHNIQUE: CT scan of the cervical spine was performed from the skull base to the thoracic inlet. Images are reviewed in the axial, sagittal, and coronal planes. IV contrast was not administered for this examination. A dose lowering technique was utilized adhering to the principles of ALARA. FINDINGS: The visualized portions of the lung apices reveal no evidence of pneumothorax. The prevertebral soft tissues are normal. No fractures or subluxations are visualized. There are multilevel degenerative changes IMPRESSION: No evidence of acute fracture or traumatic subluxation. CT head/brain wo con CLINICAL HISTORY: Head pain status post trauma COMPARISON STUDY: MRI the brain dated 12/24/2018 TECHNIQUE: Axial CT of the brain is performed from the vertex to the skull base. IV contrast was not administered for this examination. A dose lowering technique was utilized adhering to the principles of ALARA. CT DOSE: FINDINGS: No intra or extra-axial mass lesions are visualized. There is no CT evidence of acute cortical infarction. There is no evidence of midline shift. There is no acute hemorrhage. No calvarial fractures are visualized. There are patchy white matter hypodensities likely on a small vessel basis. There is no evidence of pathologic ventricular dilatation. There is no evidence of acute sinusitis IMPRESSION: No acute intracranial findings ECG Additional Comments: 11-APR-2020 09:30:24 [facility]-EDSTAT ROUTINE RETRIEVAL Poor data quality, interpretation may be adversely affected Sinus tachycardia Borderline ECG When compared with ECG of 28-OCT-2018 18:15, No significant change was found Confirmed by Matthew Rasheed ([id number]) on 04/11/2020 12:10:53 PM 25mm/s 10mm/mV 150Hz 9.0.9 12SL 241 HD REX: 12 Confirmed By: Matthew Rasheed Vent. rate 104 BPM WA interval 178 ms QRS duration 82 ms QT/QTc 354/465 ms P-R-T axes 33 38 -2 Code Status & VTE Plan Code Status Full code-discussed with the patient and his at bedside VTE Prophylaxis Plan VTE Prophylaxis will be ordered: Yes Supervising Physician Co-Signing Physician Notes Patient was seen and examined independently I discussed the case with Elisha ROBERTO I reviewed pertinent past medical social family history and also the plan of care and agree with the plan of care. 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 he is following with [facility] for this His lungs though have some splinting in the left side with some decreased breath sounds at the bases with a few rales Plan is pain control reevaluation in the morning Any exceptions will be noted below PG Care Time/CCT Total # of Minutes Spent Total Time Spent with Patient: Total time spent is greater than 50% in coordination of care (as documented) at patient's floor/unit and/or counseling patient: Coding Level of Care Code 20730 OBS Care - Level 3 Diagnoses Ribs, multiple fractures S22.49XA Hypertension I10 Hypertension type: essential hypertension Hyperlipidemia E78.5 Anemia of chronic disease D63.8 Polymyalgia rheumatica M35.3 Raynauds syndrome I73.00 Scleroderma M34.9 Sclerodactyly L94.3 Arthritis M19.90 Diabetes mellitus E11.9 Diabetes mellitus complication status: without complication Diabetes mellitus rn long term care insulin use: without rn long term care use Diabetes mellitus type: type 2 Obstructive sleep apnea G47.33 DVT prophylaxis Z29.9 (1) Diabetes mellitus Diabetes mellitus complication status: without complication Diabetes mellitus skilled nursing insulin use: without skilled nursing use Diabetes mellitus type: type 2 Qualified Code(s): E11.9 - Type 2 diabetes mellitus without complications (2) Hypertension Hypertension type: essential hypertension Qualified Code(s): I10 - Essential (primary) hypertension
[2020-04-11] MEDS: predniSONE 10 MG TABLET PO SCH (13:19)
[2020-04-11] MEDS: LISINOPRIL/HCTZ 20/12.5MG 1 TAB TAB PO SCH (13:19)
[2020-04-11] MEDS: NIFEdipine EXTENDED REL 30 MG TABCR PO SCH (13:20)
[2020-04-11] MEDS ORDERED: ONDANSETRON INJ 2 MG/ML 2 ML VIAL IV PRN (16:48)
[2020-04-11] MEDS ORDERED: CARBOHYDRATES FOR HYPOGLYCEMIA PO PRN (16:48)
[2020-04-11] MEDS ORDERED: GLUCOSE 40% GEL 15 GM TUBE PO PRN (16:48)
[2020-04-11] MEDS ORDERED: MoRPHine SULFATE 4 MG/ML 1 ML CARP\\VIAL IV PRN (16:48)
[2020-04-11] MEDS ORDERED: DEXTROSE 50% 50 ML SYRINGE IV PRN (16:48)
[2020-04-11] MEDS ORDERED: GLUCOSE 10 TABS/TUBE PO PRN (16:48)
[2020-04-11] MEDS ORDERED: GLUCAGON FOR INJ 1 MG VIAL SQ PRN (16:48)
[2020-04-11] MEDS: LIDOCAINE 5% 1 PATCH TD SCH (17:47)
[2020-04-11] MEDS: ACETAMINOPHEN 500 MG TAB PO SCH (17:48)
[2020-04-11] MEDS: INSULIN ASPART 100 UNITS/ML 3 ML PEN SC SCH ×2 (18:12→21:50)
[2020-04-11] MEDS: TRAMADOL HCL 50 MG TABLET PO PRN (18:37)
[2020-04-11] MEDS ORDERED: METOPROLOL SUCC 50MG EXT REL TAB PO SCH (21:00)
[2020-04-12] MEDS: ACETAMINOPHEN 500 MG TAB PO SCH ×3 (00:43→13:11)
[2020-04-12 06:04] LABS: Hematocrit (blood only) 34.9 % (42-52); Hemoglobin 10.8 g/dL (14.0-18.0); Mean Corpuscular Hemoglobin 26.9 pg (25-34); Mean Corpuscular Hgb Conc 30.9 g/dL (32-36); Mean Platelet Volume 9.6 fL (7.4-10.4); Platelet Count 272 K/uL (130-400); RDW Standard Deviation 60.6 fL (36.4-46.3); Red Blood Count 4.01 M/uL (4.7-6.1); White Blood Count 5.53 K/uL (4.8-10.8)
[2020-04-12] MEDS: TRAMADOL HCL 50 MG TABLET PO PRN (06:26)
--- NOTE | 2020-04-12 08:18 | Hospitalist Progress Note ---
Date of Service April 12, 2020 Assessment & Plan Admission and Anticipated Discharge Date Admission Date: April 11, 2020 Results & Data Results & Data ([facility]) Vital Signs (Past 12 Hours) Vital Signs Temp Pulse Pulse Resp BP Pulse Ox 04/12/20 06:36 36.5 C 56 L 16 125/74 98 04/12/20 03:45 61 18 98 04/11/20 23:00 36.5 C 85 18 130/83 98 04/11/20 22:43 81 16 100
[2020-04-12] MEDS: LIDOCAINE 5% 1 PATCH TD SCH (08:53)
[2020-04-12] MEDS: INSULIN ASPART 100 UNITS/ML 3 ML PEN SC SCH ×2 (08:54→13:08)
[2020-04-12] MEDS ORDERED: TAMSULOSIN HCL 0.4 MG CAP PO SCH (09:00)
[2020-04-12] MEDS ORDERED: CHOLECALCIFEROL 1,000 UNITS 25 MCG TAB PO SCH (09:00)
[2020-04-12] MEDS ORDERED: CYANOCOBALAMIN 500 MCG TABLET (VITAMIN B-12) PO SCH (09:00)
[2020-04-12] MEDS ORDERED: ROSUVASTATIN CALCIUM 5 MG TAB PO SCH (09:00)
[2020-04-12] MEDS ORDERED: MULTIVITAMIN TAB PO SCH (09:00)
[2020-04-12] MEDS ORDERED: GLUCOSAMINE SULFATE 1000 MG PO SCH (09:00)
[2020-04-12] MEDS ORDERED: OMEGA COMBINATION NO 7 PO SCH (09:00)
[2020-04-12] MEDS ORDERED: ASPIRIN 81 MG ECTAB PO SCH (09:00)
[2020-04-12] MEDS: LISINOPRIL/HCTZ 20/12.5MG 1 TAB TAB PO SCH (10:21)
[2020-04-12] MEDS: NIFEdipine EXTENDED REL 30 MG TABCR PO SCH (10:21)
[2020-04-12] MEDS: predniSONE 10 MG TABLET PO SCH (10:21)
--- NOTE | 2020-04-12 12:06 | Discharge Summary ---
Date of Service April 12, 2020 Admission HPI Per Admitting Provider This is a 70-year-old male with PMHx of polymyalgia rheumatica, Raynaud's syndrome, sclerodactyly, scleroderma, arthritis, HTN, HLD, DM type II, anemia, TRUMAN who presents after an acute fall sustained this morning while attempting to get up off of the toilet. Patient states that he stepped and lost his footing due to imbalance and slipped on water where he came down and hit his right side on the tub causing significant pain. He did not hit his head, no LOC, no presyncopal symptoms including lightheadedness or dizziness upon standing. He ambulates with a walker at baseline, does not participate in routine exercises nor does he see PT/OT at home. Patient sustained new acute left rib fractures involving ribs 7, 8, 9. His pain has improved since being in the ER and getting morphine at bedside. He is able to take deep breaths but it is painful, denies cough, shortness of breath, fever sweats or chills. His is present with him at bedside and states that he has been going downhill over the past month in terms of his ambulatory status. He has fallen previously, has a bruise over his back from the last time he fell which was a few weeks ago. Patient takes baby aspirin daily but no other blood thinners. He missed his morning medications today. Admission Exam Per Admitting Provider General: awake, alert, no apparent distress Head: Normocephalic, atraumatic ENT: PERRL, EOMI, no pharyngeal exudate, mucous membranes moist Chest: Clear to auscultation, on room air, no adventitious breath sounds, tenderness over the left chest wall, developing ecchymosis Cardiac: Regular rhythm, tachycardic with heart rate in the low 100s, no murmur, no JVD, normal peripheral pulses, good capillary refill Abdominal: NABS x 4 quadrants, soft, nontender to palpation, no rebound, guarding or tenderness Extremities: Normal inspection, no peripheral edema or erythema, calfs nontender to palpation, + many small calcified nodules over extremities under the skin in the left and right leg, bilateral feet, and buttocks Psych: Normal mood and affect Neuro: AAO x 3, no gross motor deficits, speech is clear, no peripheral sensory deficits Skin: no rash or erythema Principal Diagnosis Multiple rib fractures Discharge Exam Constitutional well developed, well nourished, cooperative and comfortable; no acute distress Respiratory normal respiratory effort, lungs clear to auscultation no labored breathing Auscultation: no crackles, no rales, no rhonchi and no wheezes Cardiovascular RRR, no murmur, no edema Heart Sounds: normal S1 and normal S2 Extremities: no edema Gastrointestinal (Abdomen) normal bowel sounds, soft, nontender, no hepatosplenomegaly Musculoskeletal Head/Neck/Chest: no chest tenderness and no localized rib tenderness tenderness in ribs related only to movement Discharge Data Allergies Allergy/AdvReac Type Severity Reaction Status Date / Time No Known Allergies Allergy Verified 04/11/20 10:36 Consultations 04/11/20 11:54 ED Decision to Admit Stat 04/11/20 16:48 Consult Case Management - Discharge Planning Routine Ordered Studies 04/11/20 09:34 CT abd pelvis IV con only Stat CT cervical spine wo con Stat CT chest w con Stat CT head/brain wo con Stat Hospital Course (1) Multiple rib fractures: Patient arrived at the ED on 04/11/20 following a fall at home. Denied presyncopal symptoms/LOC, said he slipped and fell in bathroom. Chest CT showed fractures in ribs 7-9 - non-displaced. Was found to be stable on examination on admission. Stayed stable through hospital stay and pain well controlled. Will be discharged on pain control w/ his usual Tylenol, Tramadol, and lidocaine patches. (2) Fall: (3) Chest pain: (4) Blood glucose elevated: (5) DVT prophylaxis: (6) Ribs, multiple fractures: (7) Abnormal FSH level: (8) Anemia of chronic disease: (9) Benign prostatic hyperplasia with urinary obstruction: (10) Hyperlipidemia: (11) Hypertension: (12) Hypogonadism in male: (13) Low vitamin B12 level: (14) Obstructive sleep apnea: (15) Polymyalgia rheumatica: (16) Raynauds syndrome: (17) Sclerodactyly: (18) Scleroderma: Total Time Total Time Spent Total Time Spent (In Minutes): See Attending attestation Discharge Plan Discharge Items Patient Disposition: Home - Self-Care Reason For Visit: RIB FRACTURE, FALL Discharge Diagnosis: Rib fracture due to fall Activity: Per Instructions section Non-emergency contact: Primary Care Provider Call non-emergency contact if: your symptoms worsen, your pain is concerning for you and your temperature is above 101 Follow-up/Referrals: Fredi Rodríguez MD [Primary Care Provider] - 04/18/20 3:45 pm Diet: Carb Consistent or DM2 Addtl Attending Provider Instructions: You arrived at the ED on 04/11/20 following a fall in your home. You were found to have multiple rib fractures and were admitted due to concern for shortness of breath. During your hospital stay you were evaluated and found to in stable condition with no acute concerns. We recommend pain control with Tramadol and lidocaine patches. Please follow up with your primary care provider at your earliest convenience. Pending Studies at Discharge: No Stand-Alone Forms: [facility] [employer], Smoking Cessation Medications and DC Order Prescriptions: New lidocaine 5 % Adhesive Patch,Medicated 1 patch transdermal QAM Qty: 10 RF: 0 tramadol 50 mg tablet 50 mg PO TID PRN (Reason: pain) Qty: 14 RF: 0 Continued metoprolol succinate 50 mg tablet extended release 24 hr 100 mg PO HS Qty: 180 RF: 3 cyanocobalamin (vitamin B-12) 1,000 mcg tablet 1,000 mcg PO DAILY Qty: 90 RF: 3 metformin 500 mg tablet extended release 24 hr 500 mg PO BID Qty: 180 RF: 1 nifedipine [Procardia XL] 30 mg tablet extended release 24hr 30 mg PO DAILY Qty: 90 RF: 3 rosuvastatin 5 mg tablet 5 mg PO DAILY Qty: 90 RF: 1 testosterone [AndroGel] 20.25 mg/1.25 gram (1.62 %) gel in metered-dose pump 4 pump TOP DAILY Qty: 75 RF: 1 (DME) blood sugar diagnostic [Accu-Chek Lesley Plus test strp] Strip See Rx Instructions .ROUTE .MEDSUPPLY Qty: 20 RF: 5 lisinopril-hydrochlorothiazide 20-12.5 mg tablet 2 tab PO QAM Qty: 180 RF: 3 aspirin 81 mg tablet,delayed release (DR/EC) 81 mg PO DAILY RF: 0 tamsulosin 0.4 mg capsule 0.4 mg PO DAILY Qty: 90 RF: 3 Woodward DHA 92 mg (43 mg-22 [id number]) tablet,chewable 92 mg PO DAILY RF: 0 Glucosamine Relief 500 mg capsule 1,000 mg PO DAILY RF: 0 cholecalciferol (vitamin D3) 5,000 unit capsule 5,000 units PO DAILY RF: 0 multivitamin tablet 1 tab PO DAILY RF: 0 acetaminophen 650 mg Tablet Extended Release 650 mg PO Q12H PRN (Reason: Pain) RF: 0 prednisone 10 mg tablet 20 mg PO DAILY RF: 0 sulfamethoxazole-trimethoprim [Bactrim] 400-80 mg tablet 1 tab PO 3XWK RF: 0 Discharge Orders: Discharge Order (Routine); Ordered 04/12/20 Ordered By: Ramiro Camara Admission Data Admit Date/Time: 04/11/20 12:36 Attending Provider: Rosie Vu Admit Provider: Tono Perez Primary Care Provider: Fredi Rodríguez Other Providers: Tono Perez Other Interventions: Discharge Summary Assessment (RN) Last Done: 04/12/20 12:08 Supervising Physician Co-Signing Physician Notes Resident Physician Supervision Note: I independently interviewed and examined the patient and verified the shipman history and physical, reviewed labs and image studies, discussed the case with the resident Dr. Fiona Beck and agree with the findings and care plan. Resident Activity Tracking Resident Involvement: Resident Care Provided Care Provided: Adult Hospital Medicine
== END 2020-04-12 14:15 | disposition home or self-care (01) ==
LOC: 3N 09:21 → ED 09:21 → SUATTDRO 12:36 → 3N 16:15